=== PATIENT | male | born 1955 | race Caucasian/White ===

== ENCOUNTER 2024-12-04 23:34 | Emergency (ER) | payer OTHER, SELFPAY ==
--- NOTE | ~2024-12-04 | CT_ITS ---
EXAMINATION: CTA chest PE abdomen pel DATE: 12/05/2024 01:23 INDICATION: Cardiac arrest TECHNIQUE: Computed tomography (CT) pulmonary angiogram of the chest was performed with 100 mL Omnipaque-350 intravenous contrast. Additional 3D reconstructions utilizing coronal maximum intensity projection (MIP) were performed. CT of the abdomen and pelvis was performed with intravenous contrast utilizing the same contrast bolus following a short delay. Automated exposure control and iterative reconstruction technique were employed. The dose-length product was 1876.64 mGy-cm. COMPARISON: None FINDINGS: Chest: No pulmonary embolism. Mild to moderate emphysema. Small bilateral posterior layering pleural effusions, right greater than left. There is dependent consolidation with slightly more anterior adjacent groundglass opacities in the bilateral lower lobes and to lesser degree in the posterolateral right middle and right upper lobes. The amount of airspace disease is disproportionate to the relatively minimal if any apparent associated volume loss which would favor pneumonia over atelectasis. There is diffuse bronchial wall thickening consistent with bronchitis. Heart size is normal. Atherosclerotic coronary artery calcific location. No pericardial effusion. Thoracic aorta is normal in caliber with no dissection. No pathologically enlarged mild mediastinal lymphadenopathy which is likely reactive. Calcified right hilar lymph nodes consistent with old granulomatous disease. Endotracheal tube tip 4.2 cm above the adrian. Nasogastric tube with tip and proximal side port below the diaphragm in the body the stomach. Abdomen/pelvis: Liver, gallbladder, spleen, pancreas and bilateral adrenal glands are normal. There is moderate bilateral renal atrophy and renal cysts, the largest measuring up to 1.6 cm. Small amount of gas and a Howard catheter within the decompressed bladder. Mild prostatomegaly measuring 4.2 x 3.2 cm. Bowels including the appendix are normal. There is calcified atherosclerosis of the aorta and many of the other arteries. Fusiform infrarenal aneurysm measuring up to 4.3 x 4.3 cm which is spanned by an infrarenal aortobiiliac stent graft extending to the distal common iliac arteries. No definitive endoleak. Minimal ascites in the deep pelvis. No free intraperitoneal gas. Mild lumbar and mild to moderate lower thoracic spondylosis with instrumented anterior spinal fusion with interbody bone graft cage at L4-L5. IMPRESSION: 1. No pulmonary embolism. 2. Bronchitis with ground glass opacities and dependent consolidation in the bilateral lower and posterolateral right middle and upper lobes which is disproportionate to any minimal volume loss most concerning for pneumonia. 3. Small bilateral pleural effusions. 4. Aortobiiliac endoluminal stent graft spanning a 4.3 cm infrarenal abdominal aortic aneurysm. 5. Small amount of nonspecific ascites in the deep pelvis. Reviewed, dictated and finalized at location A. IMPRESSION: 1. No pulmonary embolism. 2. Bronchitis with ground glass opacities and dependent consolidation in the bi lateral lower and posterolateral right middle and upper lobes which is dispropo rtionate to any minimal volume loss most concerning for pneumonia. 3. Small bilateral pleural effusions. 4. Aortobiiliac endoluminal stent graft spanning a 4.3 cm infrarenal abdominal aortic aneurysm. 5. Small amount of nonspecific ascites in the deep pelvis.
--- NOTE | ~2024-12-04 | CT_ITS ---
EXAMINATION: CT brain sarahi garibay, 12/05/2024 0:58 CDT HISTORY: cardiac arrest COMPARISON: No comparisons available. Technique: Axial images obtained of the brain without contrast. One or more of the following dose reduction techniques were used: automated exposure control, adjustment of the mA and/or kV according to patient size, use of iterative reconstruction technique. Findings: No acute infarct or parenchymal hemorrhage. Remote left frontal infarct. Remote right cerebellar lacunar infarcts. No abnormal mass or mass effect. No midline shift. No extra-axial fluid collections. No hydrocephalus. Mastoid air cells unremarkable. Sinuses and orbits unremarkable. No acute fracture. No significant facial or scalp soft tissue swelling evident. No radiopaque foreign body is seen. Impression: 1.No acute intracranial abnormality. Reviewed, dictated and finalized at location A. Impression: 1.No acute intracranial abnormality.
--- NOTE | ~2024-12-04 | XR_ITS ---
EXAMINATION: XR chest ET placement 12/05/2024 00:18 INDICATION: Post intubation. Cardiac arrest TECHNIQUE:2 frontal images of the chest were obtained COMPARISON: 09/27/2015 FINDINGS: Nasogastric tube courses below the diaphragm, its tip projects over the lateral aspect of the left upper lung. Endotracheal tube is present with its tip 5.5 cm above the adrian. Double-lumen right-sided central venous catheter with its tip projecting over the distal superior vena cava and cavoatrial junction. No pneumothorax. No pleural effusion. Interstitial and airspace opacities scattered throughout both lungs. IMPRESSION: 1: Endotracheal tube is present with its tip 5.5 cm above the adrian. 2. Interstitial and airspace opacities scattered throughout both lungs, greater on the right. Differential includes but is not limited to edema or pneumonia. Recommend follow-up to resolution. Reviewed, dictated and finalized at location Q.
--- NOTE | ~2024-12-04 | XR_ITS ---
Clinical history:OG placement EXAM:X-ray abdomen gastric tube TECHNIQUE:A single portable AP supine frontal image of the abdomen was obtained. Comparisons:None available FINDINGS: Nasogastric tube courses below the diaphragm, its tip projects over the lateral aspect of the left upper abdomen. No pneumothorax identified. No pleural effusion. Interstitial and airspace opacities in the mid and lower lungs. Vascular stent projects over the mid abdomen. IMPRESSION: Nasogastric tube courses below the diaphragm, its tip projects over the lateral aspect of left upper abdomen. Interstitial and airspace opacities in the mid and lower lungs. Differential includes but is not limited to edema or pneumonia. Follow-up is recommended. Reviewed, dictated and finalized at location Q. IMPRESSION: Nasogastric tube courses below the diaphragm, its tip projects over the lateral aspect of left upper abdomen. Interstitial and airspace opacities in the mid and lower lungs. Differential in cludes but is not limited to edema or pneumonia. Follow-up is recommended.
[2024-12-04 23:36] VITALS: PULSE 73; O2SAT 100
[2024-12-04 23:48] VITALS: BP 154/53; PULSE 63; RESP 14; TEMP 37.1; O2SAT 100
[2024-12-04] MEDS: RAPID SEQUENCE INTUBATION KIT 1 EACH (23:55)
[2024-12-04 23:56] VITALS: PULSE 108; O2SAT 98
[2024-12-05] VITALS (65 sets, daily range): BP systolic 116–176; BP diastolic 45–67; PULSE 42–72; RESP 13–17; TEMP 35.3–37.2; O2SAT 94–100
--- NOTE | 2024-12-05 00:04 | ECG_ITS ---
Test Date: 2024-12-05 00:04:56 Measurements Intervals [place] Rate: 71 P: 91 CO: 182 QRS: 44 QRSD: 106 T: 62 QT: 416 QTc: 453 Interpretive Statements SINUS RHYTHM SEPTAL MYOCARDIAL INFARCTION , PROBABLY OLD [40+ ms Q WAVE IN V1/V2] No previous ECG available for comparison Electronically Signed On 12-05-2024 10:36:32 CDT by Vahe Aguiar M.D.
[2024-12-05] MEDS: PROPOFOL IV EMULSION 100 ML 2.69 MG IV CONT (00:05)
[2024-12-05 00:13] LABS: Hematocrit 30.9 % (42.0-52.0); Hemoglobin 9.0 g/dL (14.0-18.0); Immature Granulocyte Percent A 0.7 % (0-0.5); Lymphocytes Absolute Auto 2.41 K/mm3 (0.9-3.2); Mean Corpuscular HGB Conc 29.1 g/dl (32-36); Mean Corpuscular Hemoglobin 29.0 pg (26-34); Mean Corpuscular Volume 99.7 fl (80-100); Nucleated Red Blood Cells Absolute Auto 0.000 K/mm3 (0.0-0.012); Nucleated Red Blood Cells Perc 0.0 % (0.0-0.2); Platelet Count Result 289 k/mm3 (150-375); Red Blood Count 3.10 M/mm3 (4.6-6.20); White Blood Count 15.4 K/mm3 (4.5-10.0)
[2024-12-05 00:21] LABS: Alveolar/Arterial O2 Gradient 202.6 mmHg; Carboxyhemoglobin 3.6 % THb (0-2.0); Fractional Inspired Oxygen 50 %; HCO3 ABG 20.4 mEq/l (22.0-26.0); Methemoglobin ABG 0.3 %THb (0-1.5); Oxygen Content ABG 11.4 %vol (16.0-22.0); Oxygen Saturation ABG 92.5 % (95.0-100.0); PO2 ABG 83.8 mmHg (80.0-100.0); PO2 FiO2 Ratio Arterial Blood 1.68 %; Reduced Hemoglobin 8.7 %THb (0-5.0)
[2024-12-05 00:21] LABS: Add Urine Microscopic? YES; Glucose Urine UA Trace mg/dL (Negative); Leukocyte Esterase Ur Negative LEU/UL (Negative); Nitrate Urine Negative (Negative); Non Pathogenic Casts 0-2; Specific Grav Ur 1.013 (1.001-1.035)
[2024-12-05 00:22] LABS: Alanine Aminotransferase 20 U/L (6-50); Albumin Level 3.8 g/dL (3.5-5.1); Alkaline Phosphatase 98 U/L (38-126); Anion Gap 13 mmol/L (4-12); Aspartate Amino Transferase 31 U/L (17-59); Bilirubin,Total 0.8 mg/dL (0.2-1.3); Blood Urea Nitrogen 58 mg/dL (9-20); Calcium 8.1 mg/dL (8.4-10.2); Carbon Dioxide 22 mmol/L (22-30); Chloride 104 mmol/L (98-107); Creatine Kinase 133 U/L (55-170); Estimated CRCL calculation 7 ml/min; Estimated Glomerular Filt Rate 5; Glucose 187 mg/dL (65-110); Magnesium 1.9 mg/dL (1.6-2.3); Potassium 5.4 mmol/L (3.4-5.0); Sodium 139 mmol/L (137-145); Total Protein 7.4 g/dL (6.3-8.2)
[2024-12-05 00:23] LABS: PCO2 ABG 62.3 mmHg (35.0-45.0)
[2024-12-05 00:23] LABS: Appearance Urine Clear (Clear)
[2024-12-05 00:24] LABS: Modified Allen's Test Pass; Site Drawn RIGHT RADIAL
[2024-12-05 00:25] LABS: Arterial Blood Gas Tidal Volume 500 ml; Arterial Blood Gas Ventilator rate 14 /MIN
[2024-12-05 00:26] LABS: INR 1.6; Prothrombin Time 18.4 Seconds (11.1-14.7)
[2024-12-05 00:27] LABS: Partial Thromboplastin Time 30.3 Seconds (22.3-36.8)
[2024-12-05 00:33] LABS: Troponin I 0.020 ng/mL (0.000-0.034)
--- NOTE | 2024-12-05 00:45 | ECG_ITS ---
Test Date: 2024-12-05 00:46:59 Measurements Intervals [place] Rate: 53 P: 75 VA: 172 QRS: 60 QRSD: 104 T: 59 QT: 457 QTc: 432 Interpretive Statements SINUS BRADYCARDIA SEPTAL MYOCARDIAL INFARCTION , PROBABLY OLD [40+ ms Q WAVE IN V1/V2] Compared to ECG 12/05/2024 00:04:56 Sinus rhythm no longer present Myocardial infarct finding still present Electronically Signed On 12-05-2024 10:36:37 CDT by Vahe Aguiar M.D.
[2024-12-05 00:50] LABS: NT Pro B Type Natriuretic Pept > 30000 pg/mL (19.9-100)
[2024-12-05] MEDS: cefTRIAXone 1 GM in SODIUM CHLORIDE 0.9% IV 50 ML 100 ML IVPB (00:51)
[2024-12-05] MEDS: CALCIUM GLUCONATE 1,000 MG/10 ML VIAL 1000 MG (00:55)
--- NOTE | 2024-12-05 01:20 | PC.NURSE ---
Howard temp 96.9; pt placed on bear MD Angle greenwood made aware.
--- NOTE | 2024-12-05 01:20 | ED.CPR ---
HPI - CPR General Chief Complaint: Cardiac Arrest/CPR Stated Complaint: sob/arrest/rosc History of Present Illness HPI narrative: Patient is a 69-year-old male who presents emergency department this evening status post cardiopulmonary arrest. Per EMS report, patient called EMS due to worsening shortness of breath for the past few weeks. When EMS got there, did inform them that the patient has been having worsening shortness of breath for the past 3 weeks and he started using her home oxygen which she has to use as needed. Patient does have a history of emphysema and COPD and a previous NC, however family members deny any history of CHF. He is an end-stage renal disease patient on hemodialysis Thursday, Thursday and Thursday and family member states that he has been going to his dialysis sessions. As they were getting ready to get the patient into the ambulance to bring him here, patient arrested. CPR immediately started and rest was achieved after 2 minutes, patient was asystole on the monitor after Mor in down to the 20s. No medications or shocks were given. EKG obtained after [place] was achieved revealed no acute process, no ischemic changes. Patient's vital signs including his blood pressure and heart rate and O2 were also noted to be within normal limits. IGel was placed and patient was administered 5 mg of Versed. Related Data Home Medications ?Medication ?Instructions ?Recorded ?Confirmed ?Last Taken ?Type allopurinol 100 mg tablet mg 12/05/24 Unknown History alprazolam 0.25 mg tablet mg 12/05/24 Unknown History amlodipine 10 mg tablet mg 12/05/24 Unknown History calcitriol 0.25 mcg capsule mcg 12/05/24 Unknown History calcium carbonate (Calcium Antacid) 200 mg PO DAILY 12/05/24 12/05/24 Unknown History carvedilol 25 mg tablet mg 12/05/24 Unknown History cholecalciferol (vitamin D3) .ROUTE 12/05/24 Unknown History furosemide 80 mg tablet mg 12/05/24 Unknown History hydralazine 25 mg tablet mg 12/05/24 Unknown History octreotide acetate 100 mcg/mL mcg 12/05/24 Unknown History injection solution pantoprazole 40 mg tablet,delayed mg PO 12/05/24 Unknown History release sodium bicarbonate 650 mg tablet mg 12/05/24 Unknown History vitamin B comp and C no.3 PO 12/05/24 Unknown History Allergies Allergy/AdvReac Type Severity Reaction Status Date / Time Penicillins Allergy Unknown Verified 11/30/14 10:54 red dye Allergy Unknown Verified 11/30/14 10:55 shellfish derived Allergy Unknown Verified 08/30/15 11:30 Review of Systems Review of Systems: Unable to obtain due to patient's current status, sedated and ventilated. [facility] Family History Family History Mother Hypertension Family history of diabetes mellitus in first degree relative Family history of heart disease in male family member before age 55 Sibling Hypertension Family history of diabetes mellitus in first degree relative Family history of heart disease in male family member before age 55 Father Family history of throat cancer Patient's father is Social History Social History Smoking status: Current every day smoker Smoking end date: 03/30/14 Alcohol intake: never Exam Narrative: General: Unresponsive. HEENT: PERRL, no rhinorrhea, no post nasal drip, oropharynx clear, intact gag reflex, iGel in place. Neck: Trachea midline, no JVD, no lymphadenopathy. Cardiovascular: Regular rate and rhythm, no murmurs, rubs or gallops, no peripheral edema. Respiratory: Clear to auscultation bilaterally, no tachypnea, no wheezing, no rhonchi, actively being bagged by RT. Abdomen: Soft, nondistended. Musculoskeletal: No joint swelling or deformity, normal muscle tone. Skin: No rashes or petechia, no signs of infection. Neurological: Unable to obtain at this time as patient is sedated and intubated. Course Vital Signs Vital signs: Vital Signs Pulse Rate 73 12/04/24 23:36 Pulse Oximetry 100 12/04/24 23:36 Oxygen Delivery Bag Valve Mask 12/04/24 23:36 Temperature 98.9 F 12/05/24 05:21 Pulse Rate 51 L 12/05/24 05:21 Respiratory Rate 16 12/05/24 05:21 Blood Pressure 132/54 L 12/05/24 05:21 Pulse Oximetry 100 12/05/24 05:21 Oxygen Delivery Mechanical Ventilation 12/05/24 04:26 Oxygen Flow Rate 50 12/05/24 04:10 Fraction of Inspired Oxygen 70 12/05/24 04:26 Procedures Intubation Intubation #1: Intubation Date: 12/05/24 Intubation Time: 04:15 sedative: Etomidate Mg Given: 30 paralytic: Rocuronium Mg Given: 100 Laryngoscope: fiber optic video scope Tube Size (cm): 7.5 Method of Intubation: orotracheal Number of Attempts: 1 Tube Secured Location: teeth Tube Placement Confirmation: visualized tube passing through cords, equal breath sounds bilaterally, no breath sounds over epigastrium and confirmation by capnometry Patient Tolerated Procedure: well Intubation Complications: none MDM - Cardiac Arrest/CPR MDM Narrative Medical decision making narrative: The patient was evaluated by myself in the emergency department. History is obtained from EMS and physical exam was performed. External medical records were reviewed at this time. IV was established and pertinent tests were ordered. Respiratory therapist called to bedside, patient was intubated shortly upon arrival as detailed under procedural note. Started on propofol and Versed for sedation. Patient was also placed on a Tomer Hugger due to mild hypothermia of 95.8 degrees F. EKG was obtained which revealed sinus rhythm rate of 71 beats per minute with peaked T-waves, otherwise no evidence of acute ischemia. EKG was independently interpreted by me and is currently pending official cardiology read. patient was administered 1 g of IV calcium gluconate due to concern for possible hyperkalemia as the cause of his cardiopulmonary arrest given his history of hemodialysis. serial EKGs were obtained and all revealed sinus bradycardia ranging in the 40s beats per minute. Case was discussed with the drilling field specialist Dr. Aguiar at [phone] And he agrees that patient's persistent bradycardia does not appear to be ischemic or secondary to AV block requiring a pacemaker. Laboratory results obtained revealing a leukocytosis of 15.4, hemoglobin of 9, pH of 7.134, CO2 of 62, potassium of 5.4, BUN 58, creatinine 9.92, BNP > 19511, lactic acid 3.5, otherwise unremarkable. Patient was started on IV antibiotics with Rocephin and azithromycin to cover for community-acquired pneumonia as patient did trigger sepsis. Imaging studies obtained included CXR, KUB, CT brain without IV contrast, CT chest abdomen and pelvis with IV contrast which was independently interpreted by me revealing no evidence of pulmonary emboli, CHF exacerbation with concern for either volume overload or aspiration pneumonia otherwise no acute process, ET and NG tube in satisfactory positions, which is pending final radiology interpretation. Differential diagnosis considerations include STEMI, PE, sepsis secondary to infectious process such as multifocal pneumonia, urosepsis, electrolyte derangements. Comorbidities impacting this visit include none. I have evaluated and discussed social determinants of health with the patient that could potentially impact subsequent diagnosis and treatment plans. Family members were updated regarding patient's current status. The son did state that the patient did himself request to be sent to [place] prior to the cardiac arrest, however, EMS informed them that they have taken to the closest facility. [facility] transfer line was contacted at [phone] and case was discussed with the on-call hospitalist Dr. Temple and the on-call poly operator Dr. Parker at [phone] who both accepted transfer to the ICU unit. Per their request, 2 g of cefepime were added at this time. Critical care time of 120 minutes, exclusive of separately performed procedures, necessary for treating or preventing eminent or life-threatening deterioration of patient's condition of sepsis secondary to multifocal pneumonia, acute hypoxic hypercapnic respiratory failure, focused on patient care provided personally by me and time spent during initial evaluation, physical examination, ordering and performing treatments and interventions, ordering and reviewing laboratory studies, ordering and reviewing radiographic studies, re-evaluation of the patient's condition, evaluation of the patient's response to treatment, and discussion of patient case with multiple consultants. Lab Data 12/04/24 23:54 12/04/24 23:54 Labs: Lab Results 12/04/24 12/04/24 12/04/24 Range/Units 23:53 23:54 23:54 WBC 15.4 H (4.5-10.0) K/mm3 RBC 3.10 L (4.6-6.20) M/mm3 Hgb 9.0 L D (14.0-18.0) g/dL Hct 30.9 L (42.0-52.0) % MCV 99.7 (80-100) fl MCH 29.0 (26-34) pg MCHC 29.1 L (32-36) g/dl RDW 17.4 H (11.5-14.5) % Plt Count 289 (150-375) k/mm3 MPV 10.3 (7.4-10.4) fl Immature Gran % (Auto) 0.7 H (0-0.5) % Neut % (Auto) 74.1 H (45.5-73.1) % Lymph % (Auto) 15.7 L (18.3-44.2) % [place] % (Auto) 7.2 (2.6-8.5) % Eos % (Auto) 1.8 (0-4.4) % Baso % (Auto) 0.5 (0.2-1.2) % Lymph # (Auto) 2.41 (0.9-3.2) K/mm3 [place] # (Auto) 1.1 H (0.1-0.6) K/mm3 Eos # (Auto) 0.3 (0-0.3) K/mm3 Baso # (Auto) 0.1 (0.0-0.1) K/mm3 Abs Immat Gran (auto) 0.11 H (0.00-0.031) K/mm3 Absolute Neuts (auto) 11.4 H (1.3-6.7) K/mm3 Absolute Nucleated RBC 0.000 (0.0-0.012) K/mm3 Nucleated RBC % 0.0 (0.0-0.2) % PT 18.4 H (11.1-14.7) Seconds INR 1.6 APTT 30.3 (22.3-36.8) Seconds Methemoglobin (0-1.5) %THb Minute Volume Vent Mode Tidal Volume ml PEEP cmH2O Peak Inspir Pressure Pressure Support Sodium 139 (137-145) mmol/L Potassium 5.4 H (3.4-5.0) mmol/L Chloride 104 (98-107) mmol/L Carbon Dioxide 22 (22-30) mmol/L Anion Gap 13 H (4-12) mmol/L BUN 58 H (9-20) mg/dL Creatinine 9.92 H (0.7-1.3) mg/dL Estim Creat Clear Calc 7 ml/min Estimated GFR 5 L (59 - ) Glucose 187 H (65-110) mg/dL Lactic Acid 3.5 H (0.7-2.0) mmol/L Calcium 8.1 L (8.4-10.2) mg/dL Magnesium 1.9 (1.6-2.3) mg/dL Total Bilirubin 0.8 (0.2-1.3) mg/dL AST 31 (17-59) U/L ALT 20 (6-50) U/L Alkaline Phosphatase 98 (38-126) U/L Total Creatine Kinase 133 (55-170) U/L Troponin I Pending 0.020 NT-Pro-B Natriuret Pep > 05140 H (19.9-100) pg/mL Total Protein 7.4 (6.3-8.2) g/dL Albumin 3.8 (3.5-5.1) g/dL Urine Color (Yellow) Urine Appearance (Clear) Urine pH (5.0-9.0) Ur Specific [place] (1.001-1.035) Urine Protein (Negative) mg/dL Urine Glucose (UA) (Negative) mg/dL Urine Ketones (Negative) mg/dL Ur Blood (Man) (Negative) Urine Nitrate (Negative) Urine Bilirubin (Negative) Urine Urobilinogen (<2.0) mg/dL Leukocyte Esterase Rfl (Negative) MELONIE/UL Urine RBC (0-2) /hpf Urine WBC (0-3) /hpf Ur Squamous Epith Cells (Few) /hpf Urine Bacteria /hpf Urine Casts Urine Opiates Screen Negative (Negative) Urine Methadone Screen Negative (Negative) Ur Barbiturates Screen Negative (Negative) Ur Phencyclidine Scrn Negative (Negative) Ur Amphetamine Screen Negative (Negative) U Benzodiazepines Scrn Negative (Negative) Urine Cocaine Screen Negative (Negative) U Cannabinoids Screen Negative (Negative) 12/04/24 12/05/24 12/05/24 Range/Units 23:55 00:11 02:42 WBC (4.5-10.0) K/mm3 RBC (4.6-6.20) M/mm3 Hgb (14.0-18.0) g/dL Hct (42.0-52.0) % MCV (80-100) fl MCH (26-34) pg MCHC (32-36) g/dl RDW (11.5-14.5) % Plt Count (150-375) k/mm3 MPV (7.4-10.4) fl Immature Gran % (Auto) (0-0.5) % Neut % (Auto) (45.5-73.1) % Lymph % (Auto) (18.3-44.2) % [place] % (Auto) (2.6-8.5) % Eos % (Auto) (0-4.4) % Baso % (Auto) (0.2-1.2) % Lymph # (Auto) (0.9-3.2) K/mm3 [place] # (Auto) (0.1-0.6) K/mm3 Eos # (Auto) (0-0.3) K/mm3 Baso # (Auto) (0.0-0.1) K/mm3 Abs Immat Gran (auto) (0.00-0.031) K/mm3 Absolute Neuts (auto) (1.3-6.7) K/mm3 Absolute Nucleated RBC (0.0-0.012) K/mm3 Nucleated RBC % (0.0-0.2) % PT (11.1-14.7) Seconds INR APTT (22.3-36.8) Seconds Methemoglobin 0.3 0.3 (0-1.5) %THb Minute Volume Not Reportable Not Reportable Vent Mode Cmv Cmv Tidal Volume 500 500 ml PEEP 5 5 cmH2O Peak Inspir Pressure Not Reportable Not Reportable Pressure Support Not Reportable Not Reportable Sodium (137-145) mmol/L Potassium (3.4-5.0) mmol/L Chloride (98-107) mmol/L Carbon Dioxide (22-30) mmol/L Anion Gap (4-12) mmol/L BUN (9-20) mg/dL Creatinine (0.7-1.3) mg/dL Estim Creat Clear Calc ml/min Estimated GFR (59 - ) Glucose (65-110) mg/dL Lactic Acid (0.7-2.0) mmol/L Calcium (8.4-10.2) mg/dL Magnesium (1.6-2.3) mg/dL Total Bilirubin (0.2-1.3) mg/dL AST (17-59) U/L ALT (6-50) U/L Alkaline Phosphatase (38-126) U/L Total Creatine Kinase (55-170) U/L Troponin I NT-Pro-B Natriuret Pep (19.9-100) pg/mL Total Protein (6.3-8.2) g/dL Albumin (3.5-5.1) g/dL Urine Color Yellow (Yellow) Urine Appearance Clear (Clear) Urine pH 8.0 (5.0-9.0) Ur Specific [place] 1.013 (1.001-1.035) Urine Protein 4+ H (Negative) mg/dL Urine Glucose (UA) Trace H (Negative) mg/dL Urine Ketones Negative (Negative) mg/dL Ur Blood (Man) 1+ H (Negative) Urine Nitrate Negative (Negative) Urine Bilirubin Negative (Negative) Urine Urobilinogen 0.2 (<2.0) mg/dL Leukocyte Esterase Rfl Negative (Negative) MELONIE/UL Urine RBC 6-10 H (0-2) /hpf Urine WBC 6-10 H (0-3) /hpf Ur Squamous Epith Cells None seen (Few) /hpf Urine Bacteria None seen /hpf Urine Casts 0-2 Urine Opiates Screen (Negative) Urine Methadone Screen (Negative) Ur Barbiturates Screen (Negative) Ur Phencyclidine Scrn (Negative) Ur Amphetamine Screen (Negative) U Benzodiazepines Scrn (Negative) Urine Cocaine Screen (Negative) U Cannabinoids Screen (Negative) 12/05/24 Range/Units 04:02 WBC (4.5-10.0) K/mm3 RBC (4.6-6.20) M/mm3 Hgb (14.0-18.0) g/dL Hct (42.0-52.0) % MCV (80-100) fl MCH (26-34) pg MCHC (32-36) g/dl RDW (11.5-14.5) % Plt Count (150-375) k/mm3 MPV (7.4-10.4) fl Immature Gran % (Auto) (0-0.5) % Neut % (Auto) (45.5-73.1) % Lymph % (Auto) (18.3-44.2) % [place] % (Auto) (2.6-8.5) % Eos % (Auto) (0-4.4) % Baso % (Auto) (0.2-1.2) % Lymph # (Auto) (0.9-3.2) K/mm3 [place] # (Auto) (0.1-0.6) K/mm3 Eos # (Auto) (0-0.3) K/mm3 Baso # (Auto) (0.0-0.1) K/mm3 Abs Immat Gran (auto) (0.00-0.031) K/mm3 Absolute Neuts (auto) (1.3-6.7) K/mm3 Absolute Nucleated RBC (0.0-0.012) K/mm3 Nucleated RBC % (0.0-0.2) % PT (11.1-14.7) Seconds INR APTT (22.3-36.8) Seconds Methemoglobin 0.3 (0-1.5) %THb Minute Volume Not Reportable Vent Mode Cmv Tidal Volume 500 ml PEEP 8 cmH2O Peak Inspir Pressure Not Reportable Pressure Support Not Reportable Sodium (137-145) mmol/L Potassium (3.4-5.0) mmol/L Chloride (98-107) mmol/L Carbon Dioxide (22-30) mmol/L Anion Gap (4-12) mmol/L BUN (9-20) mg/dL Creatinine (0.7-1.3) mg/dL Estim Creat Clear Calc ml/min Estimated GFR (59 - ) Glucose (65-110) mg/dL Lactic Acid (0.7-2.0) mmol/L Calcium (8.4-10.2) mg/dL Magnesium (1.6-2.3) mg/dL Total Bilirubin (0.2-1.3) mg/dL AST (17-59) U/L ALT (6-50) U/L Alkaline Phosphatase (38-126) U/L Total Creatine Kinase (55-170) U/L Troponin I NT-Pro-B Natriuret Pep (19.9-100) pg/mL Total Protein (6.3-8.2) g/dL Albumin (3.5-5.1) g/dL Urine Color (Yellow) Urine Appearance (Clear) Urine pH (5.0-9.0) Ur Specific [place] (1.001-1.035) Urine Protein (Negative) mg/dL Urine Glucose (UA) (Negative) mg/dL Urine Ketones (Negative) mg/dL Ur Blood (Man) (Negative) Urine Nitrate (Negative) Urine Bilirubin (Negative) Urine Urobilinogen (<2.0) mg/dL Leukocyte Esterase Rfl (Negative) MELONIE/UL Urine RBC (0-2) /hpf Urine WBC (0-3) /hpf Ur Squamous Epith Cells (Few) /hpf Urine Bacteria /hpf Urine Casts Urine Opiates Screen (Negative) Urine Methadone Screen (Negative) Ur Barbiturates Screen (Negative) Ur Phencyclidine Scrn (Negative) Ur Amphetamine Screen (Negative) U Benzodiazepines Scrn (Negative) Urine Cocaine Screen (Negative) U Cannabinoids Screen (Negative) ABG Data ABG results: 12/05/24 12/05/24 12/05/24 00:11 02:42 04:02 Puncture Site Right radial Right radial Right radial ABG pH 7.134 L* 7.359 7.369 ABG pCO2 62.3 H* 40.5 39.3 ABG pO2 83.8 45.0 L* 80.2 ABG PO2/FiO2 Ratio 1.68 0.90 1.15 ABG HCO3 20.4 L 22.3 22.2 ABG O2 Saturation 92.5 L 79.3 L* 95.6 ABG O2 Content 11.4 L 8.3 L 10.9 L ABG Base Excess -8.6 -2.9 -2.9 A-a Gradient 202.6 265.9 376.7 Oxyhemoglobin 87.4 L* 73.4 L* 92.2 Carboxyhemoglobin 3.6 H 2.6 H 1.9 Reduced Hemoglobin 8.7 H 23.7 H 5.6 H Total Hemoglobin 9.2 L 8.0 L 8.3 L O2 Delivery Device Ventilator Ventilator Ventilator O2 Liters/Min Not Reportable Not Reportable Not Reportable Vent Rate 14 16 16 FiO2 50 50 70 Critical Care Time Critical Care Time Critical Care Time: Yes Total Critical Care Time: 120 ( Please for to [facility] for attestation.) Discharge Plan Discharge Clinical Impression: Cardiac arrest, Acute respiratory failure, Hypercapnic respiratory failure, Sepsis, Congestive heart failure Patient Disposition: Acute Care Hospital Condition: Stable Patient Language: [place]at[place] Prescriptions: No Action octreotide acetate 100 mcg/mL solution carvedilol 25 mg tablet hydralazine 25 mg tablet allopurinol 100 mg tablet alprazolam 0.25 mg tablet furosemide 80 mg tablet sodium bicarbonate 650 mg tablet amlodipine 10 mg tablet pantoprazole 40 mg tablet,delayed release (DR/EC) PO calcitriol 0.25 mcg capsule calcium carbonate [Calcium Antacid] 200 mg calcium (500 mg) tablet,chewable 200 mg PO DAILY cholecalciferol (vitamin D3) .ROUTE vitamin B comp and C no.3 PO atorvastatin 40 mg tablet 40 mg PO QPM Qty: 90 2RF Follow-up/Referrals: Christa Moss MD [Primary Care Provider, [facility]] Time of Disposition: 04:01
--- NOTE | 2024-12-05 01:45 | ECG_ITS ---
Test Date: 2024-12-05 01:50:56 Measurements Intervals [place] Rate: 47 P: 0 TN: 0 QRS: 35 QRSD: 101 T: 185 QT: 509 QTc: 452 Interpretive Statements SIGNIFICANT BASELINE ARTIFACT PRECLUDES ACCURATE INTERPRETATION Electronically Signed On 12-05-2024 10:37:29 CDT by Vahe Aguiar M.D.
[2024-12-05] MEDS: AZITHROMYCIN IV 500 MG in SODIUM CHLORIDE 0.9% IV 250 ML IVPB (01:53)
--- NOTE | 2024-12-05 02:03 | ECG_ITS ---
Test Date: 2024-12-05 02:01:07 Measurements Intervals [place] Rate: 44 P: 8 HI: 188 QRS: 41 QRSD: 100 T: 28 QT: 506 QTc: 436 Interpretive Statements SINUS BRADYCARDIA SEPTAL MYOCARDIAL INFARCTION , PROBABLY OLD [40+ ms Q WAVE IN V1/V2] Compared to ECG 12/05/2024 01:50:56 Sinus rhythm no longer present Myocardial infarct finding still present Electronically Signed On 12-05-2024 10:37:54 CDT by Vahe Aguiar M.D.
--- NOTE | 2024-12-05 02:08 | PC.NURSE ---
LATE ENTRY: 2345:100MG JANINE GIVEN 30 MG ETOMIDATE 2347: ET TUBE 7.5 POSITIVE COLOR CHANGE 0000: OG 16fr - 60 @ lip Howard catheter in place
[2024-12-05] MEDS: MIDAZOLAM HCL (*CRX) 2 MG/2 ML VIAL 4 MG IV PUSH (02:30)
[2024-12-05] MEDS: MIDAZOLAM 100MG/NS 100ML(*CRX) 100 MG/100 ML BAG IV CONT (02:42)
[2024-12-05 02:53] LABS: Alveolar/Arterial O2 Gradient 265.9 mmHg; Carboxyhemoglobin 2.6 % THb (0-2.0); Fractional Inspired Oxygen 50 %; HCO3 ABG 22.3 mEq/l (22.0-26.0); Methemoglobin ABG 0.3 %THb (0-1.5); Oxygen Content ABG 8.3 %vol (16.0-22.0); PCO2 ABG 40.5 mmHg (35.0-45.0); PO2 FiO2 Ratio Arterial Blood 0.90 %; Reduced Hemoglobin 23.7 %THb (0-5.0)
[2024-12-05 02:59] LABS: PO2 ABG 45.0 mmHg (80.0-100.0)
[2024-12-05 03:00] LABS: Oxygen Saturation ABG 79.3 % (95.0-100.0)
[2024-12-05 03:01] LABS: Modified Allen's Test Pass; Site Drawn RIGHT RADIAL
[2024-12-05 03:02] LABS: Arterial Blood Gas Tidal Volume 500 ml; Arterial Blood Gas Ventilator rate 16 /MIN
[2024-12-05 04:13] LABS: Alveolar/Arterial O2 Gradient 376.7 mmHg; Carboxyhemoglobin 1.9 % THb (0-2.0); Fractional Inspired Oxygen 70 %; HCO3 ABG 22.2 mEq/l (22.0-26.0); Methemoglobin ABG 0.3 %THb (0-1.5); Oxygen Content ABG 10.9 %vol (16.0-22.0); Oxygen Saturation ABG 95.6 % (95.0-100.0); PCO2 ABG 39.3 mmHg (35.0-45.0); PO2 ABG 80.2 mmHg (80.0-100.0); PO2 FiO2 Ratio Arterial Blood 1.15 %; Reduced Hemoglobin 5.6 %THb (0-5.0)
[2024-12-05 04:15] LABS: Arterial Blood Gas Ventilator rate 16 /MIN; Modified Allen's Test Pass; Site Drawn RIGHT RADIAL
[2024-12-05 04:16] LABS: Arterial Blood Gas Tidal Volume 500 ml
[2024-12-05] MEDS: CEFEPIME 2 GM in SODIUM CHLORIDE 0.9% IV 50 ML 100 ML IVPB (04:22)
[2024-12-05 04:47] LABS: Cannabinoid Screen Urine Negative (Negative)
--- NOTE | 2024-12-05 05:40 | PC.NURSE ---
Julia updated on plan of care, time of transfer with room number at receiving hospital, per her request.
== END 2024-12-05 05:50 | disposition short-term general hospital (02) ==
PROVIDERS: Emergency Provider Emergency Medicine; PCP Family Medicine
DX: I46.9 Cardiac arrest, cause unspecified (principal); A41.9 Sepsis, unspecified organism; J96.02 Acute respiratory failure with hypercapnia; I50.9 Heart failure, unspecified; J43.9 Emphysema, unspecified; I25.2 Old myocardial infarction; N18.6 End stage renal disease; Z99.2 Dependence on renal dialysis; Z87.891 Personal history of nicotine dependence; R00.1 Bradycardia, unspecified; Z79.899 Other long term (current) drug therapy
CPT/HCPCS: 31500; 36415; 36600; 70450; 71275; 74177; 80053; 80307; 81001; 82375; 82550; 82805; 83050; 83605; 83735; 83880; 84484; 85018; 85025; 85610; 85730; 87040; 87086; 92950; 93005; 96365; 96367; 96375; 99291; J0456; J0612; J0692; J0696; J2250; J2704; J7050; Q9967